=== PATIENT | female | born 1985 | race Caucasian/White ===

== ENCOUNTER 2017-12-26 07:31 | Emergency (ER) | payer BC ==
[2017-12-26 07:47] VITALS: BP 97/54
[2017-12-26 08:08] LABS: BILIRUBIN,URINE NEGATIVE (NEGATIVE); GLUCOSE, URINE (UA) NEGATIVE (NEGATIVE); KETONES,URINE (UA) NEGATIVE (NEGATIVE); LEUKOCYTE ESTERASE, URINE TRACE (NEGATIVE); NITRITE,URINE NEGATIVE (NEGATIVE); OCCULT BLOOD,URINE NEGATIVE (NEGATIVE); PROTEIN,URINE NEGATIVE (NEGATIVE); UROBILINOGEN,URINE 0.2 (NORMAL) E.U./dL (NORMAL)
[2017-12-26 08:09] LABS: CLARITY,URINE CLEAR (CLEAR); HCG UR QUAL NEGATIVE
--- NOTE | 2017-12-26 08:11 | ED Physician Documentation ---
History of Present Illness - Stated complaint Stated Complaint: FEMALE - Chief complaint Chief Complaint: UTI - History obtained from History obtained from: Patient, Family - History of Present Illness Timing: How many days ago (4) Pain level max: 4 Pain level now: 3 Improved by: nothing Worsened by: nothing - Additonal information Additional information: Patient is a 32-year-old female who is visiting from out of town, she states that several days ago she noted a rash to the left side of her labia that is now spread up the left buttocks. She describes it is mildly itchy but mostly stinging. Does not remember any vesicles or pustules. Has not had this before. States she does get herpes outbreaks around her mouth. No change in sexual partners. No vaginal discharge or bleeding. Review of Systems Constitutional: denies: Fever, Chills GI: denies: Vomiting : denies: Dysuria, Frequency, Hesitancy, Now EGA Musculoskeletal: denies: Neck pain, Back pain Neurologic: denies: Headache PD PAST MEDICAL HISTORY - Past Medical History Past Medical History: No - Present Medications Home Medications: Ambulatory Orders Medication Instructions Recorded Confirmed Valacyclovir HCl [Valacyclovir] 1,000 mg PO BID #20 tablet 12/26/17 predniSONE [Prednisone] 40 mg PO DAILY #10 tablet 12/26/17 - Allergies Allergies/Adverse Reactions: Allergies Allergy/AdvReac Type Severity Reaction Status Date / Time No Known Drug Allergies Allergy Verified 12/26/17 07:47 - Living Situation Living Situation: reports: With family Living Arrangement: reports: At home - Social History Does the pt have substance abuse?: No - Family History Family history: reports: Non contributory PD ED PE NORMAL - Vitals Vital signs reviewed: Yes - General General: Alert and oriented X 3, No acute distress - HEENT HEENT: Moist mucous membranes - Neck Neck: Supple, no meningeal sign - Abdomen Abdomen: Soft, Non tender, Non distended - Female Female : Mental Health Coordinator present (Yumi Mcnulty RN), Other (small scattered lesions at the posterior left labia and another small area of 4-5 lesions on the L buttocks. no pustules. no vesicles. no drainage. some scaling is present. ) - Derm Derm: Warm and dry - Neuro Neuro: Alert and oriented X 3 Results - Vitals Vitals: Vital Signs - 24 hr 12/26/17 07:44 Temperature 36.2 C L Heart Rate 72 Respiratory 14 Rate Blood Pressure 97/54 L O2 Saturation 99 Oxygen O2 Source Room air - Labs Labs: Laboratory Tests 12/26/17 07:50 Urine Color YELLOW Urine Clarity CLEAR Urine pH 6.0 Ur Specific Carey 1.010 Urine Protein NEGATIVE Urine Glucose (UA) NEGATIVE Urine Ketones NEGATIVE Urine Occult Blood NEGATIVE Urine Nitrite NEGATIVE Urine Bilirubin NEGATIVE Urine Urobilinogen 0.2 (NORMAL) Ur Leukocyte Esterase TRACE H Urine RBC 0-5 Urine WBC 6-10 H Ur Squamous Epith Cells MANY Squamous H Urine Bacteria Few Ur Microscopic Review INDICATED Urine Culture Comments NOT INDICATED Urine HCG, Qual NEGATIVE PD MEDICAL DECISION MAKING - ED course Complexity details: reviewed results, re-evaluated patient, considered differential, d/w patient ED course: Patient is a 32-year-old female who presents to the emergency department with what appears to be genital herpes. Will place on acyclovir. We will also trial on a short course of steroids and see if this improves her symptoms as she has not had genital herpes outbreaks in the past. She is very well- appearing, nontoxic. Afebrile. Patient counseled regarding signs and symptoms for which I believe and urgent re-evaluation would be necessary. Patient with good understanding of and agreement to plan and is comfortable going home at this time This document was made in part using voice recognition software. While efforts are made to proofread this document, sound alike and grammatical errors may occur. UA appears contaminated, no symptoms, will hold abx. - Sepsis Event Vital Signs: Vital Signs - 24 hr 12/26/17 07:44 Temperature 36.2 C L Heart Rate 72 Respiratory 14 Rate Blood Pressure 97/54 L O2 Saturation 99 Oxygen O2 Source Room air Departure - Departure Disposition: 01 Home, Self Care Clinical Impression: Herpes genitalis in women Condition: Good Instructions: ED Herpes Simplex Virus Type 1 Follow-Up: Provider,Other [Primary Care Provider] - Within 1 week Prescriptions: predniSONE [Prednisone] 40 mg PO DAILY #10 tablet Valacyclovir HCl [Valacyclovir] 1,000 mg PO BID #20 tablet Comments: It does appear that you have genital herpes today. This rash may last 10-19 days. Take all medications as prescribed. Return if you worsen.
[2017-12-26 08:19] LABS: RBC,URINE 0-5 /HPF (0-5)
[2017-12-26 08:20] LABS: BACTERIA,URINE Few /HPF (None Seen); SQUAMOUS EPITHELIAL CELL,UR MANY Squamous (<= Few)
== END 2017-12-26 08:40 | disposition home or self-care (01) ==
LOC: EDBD 07:31 → ED 07:31
DX: A60.09 Herpesviral infection of other urogenital tract (principal)
CPT/HCPCS: 81001; 81003; 81025; 87086; 99283